=== PATIENT | female | born 1985 | race Two or more races ===

== ENCOUNTER 2016-06-02 19:48 | Emergency (ER) | payer BC ==
[~2016-06-02] VITALS: Ht 160 cm; Wt 63.5 kg
[2016-06-02 20:28] VITALS: BP 114/71
== END 2016-06-02 21:04 | disposition home or self-care (01) ==
LOC: ER 19:52
DX: L02.415 Cutaneous abscess of right lower limb (principal); L02.91 Cutaneous abscess, unspecified
CPT/HCPCS: 99283; A4606; Z7610

== ENCOUNTER 2018-10-13 01:12 | Emergency (ER) | payer BC, MEDICAID ==
[~2018-10-13] VITALS: Ht 160 cm; Wt 71.2 kg
[2018-10-13 01:21] VITALS: BP 112/80
== END 2018-10-13 01:56 | disposition home or self-care (01) ==
LOC: ER 01:16
DX: L73.2 Hidradenitis suppurativa (principal)